=== PATIENT | male | born 1990 | race American Indian/Alaskan Native ===

== ENCOUNTER 2019-04-07 13:10 | Emergency (ER) | payer SELFPAY ==
[2019-04-07 13:48] VITALS: BP 129/80
--- NOTE | 2019-04-07 13:48 | Event Note ---
ED Screening Note Date of service: 04/07/19 Time: 13:47 ED Screening Note: 28 y o male presents with rash generalized and spreading all over body today to chest, thighs amd back This initial assessment/diagnostic orders/clinical plan/treatment(s) is/are subject to change based on patients health status, clinical progression and re- assessment by fellow clinical providers in the ED. Further treatment and workup at subsequent clinical providers discretion. Patient/guardian urged not to elope from the ED as their condition may be serious if not clinically assessed and managed. Initial orders include: ACC eval
[2019-04-07] MEDS ORDERED: methylPREDNISolone ACETATE 80 MG/1 ML INJ IM ONE (14:11)
[2019-04-07] MEDS ORDERED: FAMOTIDINE 20 MG TAB PO ONE (14:11)
[2019-04-07] MEDS ORDERED: hydrOXYzine PAMOATE 25 MG CAP PO ONE (14:11)
--- NOTE | 2019-04-07 14:12 | Emergency Department Report ---
ED Rash HPI - HPI Chief Complaint: Skin Rash Stated Complaint: RASH Time Seen by Provider: 04/07/19 13:47 Duration: 3 Days Location: Other Suspected Cause: Unknown Rash Symptoms: Yes Itching, No Facial Swelling, No Tongue/Oral Swelling, No Breathing Difficulties, No Choking Sensation, No Wheezing/Dyspnea, No Peeling, No Blistering, No Fever, No Lightheaded, No Malaise, No Myalgias Severity: mild Other History: 28 yo comes in with a generalized rash. it is sandpaper in appearance and texture. no systemic symptoms. abc intact. vss. no wheezing. allergic to shellfish. hx of asthma. no known exposure. no pain. otc meds taken at home with no relief. ED Review of Systems ROS: Stated complaint: RASH Other details as noted in HPI Comment: All other systems reviewed and negative ED Past Medical Hx - Past Medical History Previous Medical History?: Yes Hx Asthma: Yes - Surgical History Past Surgical History?: No - Family History Family history: no significant - Social History Smoking Status: Current Every Day Smoker Substance Use Type: Alcohol - Medications Home Medications: Home Medications Medication Instructions Recorded Confirmed Last Taken Type Cetirizine HCl [ZyrTEC] 10 mg PO DAILY #30 capsule 04/07/19 Unknown Rx hydrOXYzine PAMOATE [Vistaril] 25 mg PO Q6HR PRN #20 capsule 04/07/19 Unknown Rx predniSONE [Deltasone] 20 mg PO DAILY #5 tablet 04/07/19 Unknown Rx Rash Exam - Exam General: Vital signs noted. No distress. Alert and acting appropriately. HEENT: No Periorbital Edema, No Conjuctival Injection, No Chemosis Lungs: Yes Good Air Exchange, No Wheezes, No Ronchi Heart: Yes Regular, No Murmur Skin: Yes Erythema, No Urticarial Rash, No Maculopapular Rash, No Morbilliform rash, No Bulla(e), No Excoriations, No Weeping, No Tenderness, No Edema, No Encrustations, No Other (sandpaper in appearance and texture) Other: Positive: Abdomen Normal, Neurologic Normal, Musculoskeletal Normal ED Course Vital Signs 04/07/19 13:46 Temperature 97.7 F Pulse Rate 70 Respiratory 16 Rate Blood Pressure 129/80 O2 Sat by Pulse 99 Oximetry ED Medical Decision Making - Medical Decision Making pt believes he is having an allergic reaction; although the rash is not urticarial. medicated in ER dc home with meds and follow up with derm. abc intact no wheezing no systemic symptoms no exposure Vital Signs 04/07/19 13:46 Temperature 97.7 F Pulse Rate 70 Respiratory 16 Rate Blood Pressure 129/80 O2 Sat by Pulse 99 Oximetry - Differential Diagnosis rash Critical care attestation.: If time is entered above; I have spent that time in minutes in the direct care of this critically ill patient, excluding procedure time. ED Disposition Clinical Impression: Allergic reaction Disposition: DC-01 TO HOME OR SELFCARE Is pt being admited?: No Does the pt Need Aspirin: No Condition: Stable Instructions: Urticaria (ED) Additional Instructions: meds as ordered follow up pcp or derm if persists referral below Prescriptions: predniSONE [Deltasone] 20 mg PO DAILY #5 tablet hydrOXYzine PAMOATE [Vistaril] 25 mg PO Q6HR PRN #20 capsule PRN Reason: Itching Cetirizine HCl [ZyrTEC] 10 mg PO DAILY #30 capsule Referrals: BREE CABALLERO MD [Staff Physician] - 3-5 Days GABBY BHANDARI MD [Referring] - 3-5 Days Forms: Work/School Release Form(ED) Time of Disposition: 14:28
== END 2019-04-07 14:50 | disposition home or self-care (01) ==
LOC: ED 13:10
DX: T78.40XA Allergy, unspecified, initial encounter (principal); J45.909 Unspecified asthma, uncomplicated; F17.200 Nicotine dependence, unspecified, uncomplicated; Z79.899 Other long term (current) drug therapy; Z91.013 Allergy to seafood; X58.XXXA Exposure to other specified factors, initial encounter
CPT/HCPCS: 96372; 99282; J1040; Q0177